=== PATIENT | male | born 1950 | race Caucasian/White ===

== ENCOUNTER 2016-12-05 12:56 | Emergency (ER) | payer MEDICARE, OTHER ==
[2016-12-05] MEDS ORDERED: DEXAMETHASONE 10 MG/ML VIAL ONE (13:24)
[2016-12-05] MEDS ORDERED: cefTRIAXone 1 GM VIAL ONE (13:24)
--- NOTE | 2016-12-05 13:44 | XRAY Preliminary Report ---
Exam: XR Chest 2 View PA/LAT IMPRESSION: Moderate to large left pleural effusion. [facility] SITE ID: [id number]
--- NOTE | 2016-12-05 13:46 | XRAY Report ---
EXAM: CHEST RADIOGRAPHY EXAM DATE: 12/05/2016 01:22 PM. CLINICAL HISTORY: Cough, fever. COMPARISON: Rib radiography 02/19/2016. TECHNIQUE: 2 views. FINDINGS: Lungs/Pleura: Moderate to large left pleural effusion with associated airspace opacity. No right pleu ral effusion or right pulmonary opacity. No pneumothorax. Mediastinum: Heart and mediastinal contours are unremarkable. Other: None. IMPRESSION: Moderate to large left pleural effusion. [facility] Referring Provider Line: [phone] SITE ID: [id number]
[2016-12-05 15:10] LABS: BASOPHILS # (AUTO) 0.1 10^3/uL (0.0-0.1); BASOPHILS % (AUTO) 0.8 %; EOSINOPHILS % (AUTO) 0.4 %; HCT - HEMATOCRIT 39.2 % (42.0-52.0); HGB - HEMOGLOBIN 13.1 g/dL (14.0-18.0); LYMPHOCYTES # (AUTO) 0.7 10^3/uL (1.5-3.5); LYMPHOCYTES % (AUTO) 8.2 %; MEAN CORPUSCULAR HEMOGLOBIN 29.1 pg (27.0-31.0); MEAN CORPUSCULAR HGB CONC 33.4 g/dL (32.0-36.0); MONOCYTES # (AUTO) 0.7 10^3/uL (0.0-1.0); MONOCYTES % (AUTO) 7.5 %; NEUTROPHILS # (AUTO) 7.3 10^3/uL (1.5-6.6); NEUTROPHILS % (AUTO) 83.1 %; RED BLOOD COUNT 4.51 10^6/uL (4.70-6.10); RED CELL DISTRIBUTION WIDTH 13.2 % (12.0-15.0); UNCORRECTED WHITE BLOOD COUNT 8.8 x10^3/uL; WHITE BLOOD COUNT 8.8 x10^3/uL (4.8-10.8)
[2016-12-05 15:20] LABS: ALBUMIN/GLOBULIN RATIO 0.9 (1.0-2.2); BILIRUBIN,TOTAL 0.8 mg/dL (0.2-1.0); CALCIUM 8.8 mg/dL (8.5-10.3); CREATININE 0.8 mg/dL (0.6-1.2); POTASSIUM 4.2 mmol/L (3.5-5.0); TOTAL PROTEIN 7.5 g/dL (6.7-8.2)
[2016-12-05 15:30] LABS: INR 1.2 (0.8-1.2)
--- NOTE | 2016-12-05 17:43 | ED Physician Documentation ---
PD HPI DYSPNEA - Stated complaint Stated Complaint: SOA - Chief complaint Chief Complaint: Resp - History obtained from History obtained from: Patient, Family - History of Present Illness Timing - onset: How many months ago (1) Timing - onset during: Exertion Timing - duration: Months (1) Timing - details: Gradual onset, Still present Improved by: Rest Worsened by: Exertion Associated symptoms: Cough. No: Fever, Hemoptysis, Wheezing, Chest pain / discomfort, Palpitations, Diaphoresis, Bilateral edema, Unilateral edema Similar symptoms before: Has not had sx before Recently seen: Not recently seen - Additional information Additional information: 66-year-old male with one-month history of increasing exertional dyspnea. He initially thought this was due to some smoke exposure or pollen and when he did not have improvement when things cleared up he became concerned. He has had a bit of a cough but does not produce any phlegm and progressive shortness of breath. He has not had this previously and does not have a history of asthma.He has been well over the past year he has lost about 73 pounds intentionally. Review of Systems Constitutional: reports: Fatigue, Sweats. denies: Fever Eyes: denies: Decreased vision Ears: denies: Ear pain Nose: denies: Congestion Throat: denies: Sore throat Cardiac: denies: Chest pain / pressure, Palpitations Respiratory: reports: Dyspnea, Cough GI: denies: Abdominal Pain, Nausea, Vomiting, Constipation, Diarrhea : denies: Dysuria, Frequency Skin: denies: Rash, Lesions Musculoskeletal: denies: Neck pain, Back pain, Extremity pain PD PAST MEDICAL HISTORY - Past Surgical History Past Surgical History: No - Present Medications Home Medications: Ambulatory Orders Medication Instructions Recorded Confirmed Escitalopram Oxalate [Lexapro] 5 DAILY 12/16/13 12/16/13 Oxycodone HCl/Acetaminophen 1 - 2 each PO Q6HR PRN #30 tablet 12/16/13 [Percocet 5-325 mg Tablet] Pregabalin [Lyrica] 25 DAILY 12/16/13 12/16/13 - Allergies Allergies/Adverse Reactions: Allergies Allergy/AdvReac Type Severity Reaction Status Date / Time No Known Drug Allergies Allergy Verified 12/16/13 10:18 - Social History Does the pt smoke?: No Smoking Status: Never smoker Does the pt drink ETOH?: Yes Does the pt have substance abuse?: No - Immunizations Immunizations are current?: Yes - POLST Patient has POLST: No PD ED PE NORMAL - Vitals Vital signs reviewed: Yes (Hypertensive) - General General: Alert and oriented X 3, No acute distress, Well developed/nourished - HEENT HEENT: Atraumatic, PERRL, EOMI, Ears normal - Neck Neck: Supple, no meningeal sign, No bony TTP - Cardiac Cardiac: RRR, No murmur - Respiratory Respiratory: No respiratory distress, Other (There are diminished breath sounds at the left base.) - Abdomen Abdomen: Soft, Non tender - Back Back: No CVA TTP, No spinal TTP - Derm Derm: Normal color, Warm and dry, No rash - Extremities Extremities: No deformity, No edema - Neuro Neuro: Alert and oriented X 3, No motor deficit, No sensory deficit, Normal speech - Psych Psych: Normal mood, Normal affect Results - Vitals Vitals: Vital Signs - 24 hr 12/05/16 12/05/16 12/05/16 13:02 14:17 17:36 Temperature 36.7 C Heart Rate 77 73 75 Respiratory 18 20 18 Rate Blood Pressure 141/83 H 153/65 H 151/61 H O2 Saturation 95 96 100 12/05/16 18:21 Temperature Heart Rate 77 Respiratory 15 Rate Blood Pressure 135/68 H O2 Saturation 96 Oxygen O2 Source Room air - Labs Labs: Laboratory Tests 12/05/16 12/05/16 12/05/16 15:03 15:03 15:03 WBC 8.8 RBC 4.51 L Hgb 13.1 L Hct 39.2 L MCV 87.0 MCH 29.1 MCHC 33.4 RDW 13.2 Plt Count 503 H MPV 7.0 L Neut # 7.3 H Lymph # 0.7 L Howard # 0.7 Eos # 0.0 Baso # 0.1 Absolute Nucleated RBC 0.00 Nucleated RBCs 0.0 PT INR Sodium 137 Potassium 4.2 Chloride 104 Carbon Dioxide 28 Anion Gap 5.0 L BUN 11 Creatinine 0.8 Estimated GFR (MDRD) 96 Glucose 98 Calcium 8.8 Total Bilirubin 0.8 AST 12 ALT 10 Alkaline Phosphatase 77 Troponin I < 0.04 Total Protein 7.5 Albumin 3.6 Globulin 3.9 Albumin/Globulin Ratio 0.9 L Lipase 23 Fluid Source Fluid Color Fluid Clarity Fluid WBC Fluid RBC Fluid Neutrophils % Fluid Lymphocytes % Fluid Monocytes % Fld Mesothelial Cell % 12/05/16 12/05/16 15:03 17:14 WBC RBC Hgb Hct MCV MCH MCHC RDW Plt Count MPV Neut # Lymph # Howard # Eos # Baso # Absolute Nucleated RBC Nucleated RBCs PT 14.0 H INR 1.2 Sodium Potassium Chloride Carbon Dioxide Anion Gap BUN Creatinine Estimated GFR (MDRD) Glucose Calcium Total Bilirubin AST ALT Alkaline Phosphatase Troponin I Total Protein Albumin Globulin Albumin/Globulin Ratio Lipase Fluid Source PLEURAL Fluid Color RED Fluid Clarity CLOUDY Fluid WBC 2588 Fluid RBC 35073 Fluid Neutrophils % 4 Fluid Lymphocytes % 64 Fluid Monocytes % 2 Fld Mesothelial Cell % 30 - Rads (name of study) 2 view chest Radiology: Prelim report reviewed (Impression: Moderate to large left pleural effusion.), EMP read indepedently, See rad report 2 view chest post thoracentesis Radiology: Prelim report reviewed (Impression: 1. New left apical pneumothorax measuring 1.4 cm. Moderate residual left-sided hydropneumothorax after thoracentesis.2. No right pneumothorax or effusion.), EMP read indepedently, See rad report Procedures - Thoracentesis Preparation: Sterile prep and drape, Sitting, Local - lidocaine Technique: Catheter over needle, Intercostal space - enter (8), Lateral, Left, Ultrasound used Fluid: Bloody, Sent for cell count, Sent for gram stain, Sent for culture, Sent for cytology Aftercare: CXR obtained, Patient tolerated well, Dressing applied, Other (small 1.4cm apical pneumothorax) PD MEDICAL DECISION MAKING - ED course Complexity details: reviewed results, re-evaluated patient, considered differential, d/w patient, d/w family ED course: 66-year-old male with relatively benign sounding history of increasing dyspnea over the past month presents to the emergency department without respiratory distress and with diminished breath sounds in the left lung. He is found to have a pleural effusion on the left side and a diagnostic and therapeutic thoracentesis is undertaken in the emergency department. Fluid is sent for cytology, Gram stain and culture, and cell count.The patient will follow up with Dr. Wadsworth for results of the cytology. He does have a small apical pneumothorax related to the procedure and is much improved at the time of discharge. He is aware of the pneumo. Departure - Departure Disposition: 01 Home, Self Care Clinical Impression: Pleural effusion on left, Pneumothorax, iatrogenic Condition: Stable Instructions: ED Effusion Pleural, ED Pneumothorax Spontaneous Follow-Up: Ghulam Wadsworth MD [Primary Care Provider] -
[2016-12-05 18:23] VITALS: BP 135/68
--- NOTE | 2016-12-05 18:34 | XRAY Preliminary Report ---
Exam: XR Chest 2 View PA/LAT IMPRESSION: 1. New left apical pneumothorax measuring 1.4 cm. Moderate residual left-sided hydropneumothorax afte r thoracentesis. 2. No right pneumothorax or effusion. [facility] The above findings were discussed with Chuckie by Dr. Simi George at 18:32 hrs on 12/05/16. SITE ID: [id number]
[2016-12-05 18:36] LABS: CC,BF RBC 35453 /mm^3; LYMPHOCYTES %,BODY FLUID 64; MONOCYTES %,BODY FLUID 2 %; NEUTROPHILS %, BF 4 %
[2016-12-05 18:39] LABS: BF CLARITY CLOUDY; BF COLOR RED; MESOTHELIAL %, BF 30 %
--- NOTE | 2016-12-05 18:43 | XRAY Report ---
EXAM: CHEST RADIOGRAPHY EXAM DATE: 12/05/2016 06:11 PM. CLINICAL HISTORY: Post thoracentesis. COMPARISON: 12/05/2016 at 1322 hours. TECHNIQUE: 2 views. FINDINGS: Lungs/Pleura: Decreased now small to moderate left pleural effusion after thoracentesis. Air-fluid le eric consistent with a left-sided hydropneumothorax measuring 1.4 cm at the left lung apex. Retrocardi ac opacities are noted. Mild interstitial prominence is present in the lungs. No right pneumothorax. Possible small right pleural effusion. Mediastinum: Heart and mediastinal contours are unremarkable. Other: None. IMPRESSION: 1. New left apical pneumothorax measuring 1.4 cm. Moderate residual left-sided hydropneumothorax afte r thoracentesis. 2. Retrocardiac opacities could represent atelectasis or infiltrates. 3. No right pneumothorax or effusion. [facility] The above findings were discussed with Chuckie by Dr. Simi George at 18:32 hrs on 12/05/16. Referring Provider Line: [phone] SITE ID: [id number]
[2016-12-07 17:26] LABS: TEST RESULT REPORT (())
== END 2016-12-05 18:52 | disposition home or self-care (01) ==
LOC: ED 12:56
DX: J90 Pleural effusion, not elsewhere classified (principal); J93.9 Pneumothorax, unspecified
CPT/HCPCS: 32554; 36415; 71020; 80053; 81599; 83690; 84157; 84484; 85025; 85610; 87070; 87205; 89051; 99283; 99284

== ENCOUNTER 2016-12-19 14:22 | Outpatient (CLI) | payer MEDICARE, OTHER ==
[2016-12-19] MEDS ORDERED: IOPAMIDOL-300 100 ML VIAL IVP ONE (16:02)
--- NOTE | 2016-12-20 10:35 | CT Report ---
CT CHEST WITH CONTRAST: 12/19/2016 CLINICAL INDICATION: Bloody pleural effusion. COMPARISON: Plain films 12/05/2016. TECHNIQUE: Axial CT images of the chest were obtained with 100 mL Isovue-300 intravenously. In accordance with CT protocol optimization, one or more of the following dose reduction techniques were utilized for this exam: automated exposure control, adjustment of mA and/or KV based on patient size, or use of iterative reconstructive technique. FINDINGS: The heart and great vessels demonstrate atherosclerotic calcifications. No hilar or mediastinal lymphadenopathy is appreciated. There is a moderate left pleural effusion, with compressive atelectasis of the majority of the left lower lobe. There are multiple hyperdense pleural-based masses present, measuring up to 3.5 cm in diameter, compatible with malignancy. The right lung demonstrates a patchy right lower lobe infiltrate and multiple small peripheral pulmonary nodules, which may represent metastatic disease. These nodules measuring 3-5 mm in size. Limited evaluation of upper abdominal structures demonstrates normal adrenal glands. Osseous structures demonstrate degenerative changes. IMPRESSION: MODERATE LEFT PLEURAL EFFUSION, WITH MULTIPLE PLEURAL-BASED NODULES. PATCHY RIGHT LOWER LOBE INFILTRATE AND MULTIPLE SMALL PERIPHERAL RIGHT LUNG NODULES. CORRELATION WITH CYTOLOGY FROM PLEURAL FLUID IS RECOMMENDED. JOB #: [id number] EXT JOB #: [id number] [facility]
== END 2016-12-19 14:23 | disposition home or self-care (01) ==
LOC: DI 14:22
PROVIDERS: ATTEND Internal Medicine
DX: J90 Pleural effusion, not elsewhere classified (principal); R91.8 Other nonspecific abnormal finding of lung field
CPT/HCPCS: 71260; Q9967

== ENCOUNTER 2017-01-06 11:52 | Outpatient (CLI) | payer MEDICARE, OTHER ==
[2017-01-06 12:45] LABS: CALCIUM 9.1 mg/dL (8.5-10.3); CREATININE 0.9 mg/dL (0.6-1.2); POTASSIUM 4.7 mmol/L (3.5-5.0)
[2017-01-06] MEDS ORDERED: IOPAMIDOL-300 100 ML VIAL ONE (12:54)
[2017-01-06] MEDS ORDERED: IOPAMIDOL-300 50 ML VIAL ONE (12:54)
[2017-01-06] MEDS ORDERED: IOPAMIDOL-300 50 ML VIAL PO ONE (13:41)
[2017-01-06] MEDS ORDERED: IOPAMIDOL-300 100 ML VIAL IVP ONE (13:41)
--- NOTE | 2017-01-06 15:11 | CT Report ---
CT ABDOMEN AND PELVIS WITH CONTRAST: 01/06/2017 CLINICAL INDICATION: Malignant pleural effusion, question primary site. TECHNIQUE: Axial CT images of the abdomen and pelvis were obtained with 100 mL Isovue-300 intravenou sly as well as oral contrast. No previous CT of the abdomen or pelvis is available for comparison. Comparison is made to previous CT of the chest of 12/19/2016. In accordance with CT protocol optimization, one or more of the following dose reduction techniques w ere utilized for this exam: automated exposure control, adjustment of mA and/or KV based on patient size, or use of iterative reconstructive technique. FINDINGS: Limited evaluation of the lung bases demonstrates persistent pleural-based masses and comp ressive atelectasis. Abdomen: The liver, spleen, pancreas, and adrenal glands appear unremarkable. The kidneys demonstra te cortical cysts. No solid renal lesion is seen. No bowel dilatation, free gas, or free fluid is p resent. No abdominal adenopathy is appreciated. Pelvis: Trace free fluid is present in the pelvis. No pelvic adenopathy is seen. The appendix is s een in the right lower quadrant, and is normal in caliber. Osseous structures demonstrate degenerative changes. IMPRESSION: NO EVIDENT PRIMARY MALIGNANCY IN THE ABDOMEN OR PELVIS. JOB #: [id number] EXT JOB #:[id number]
== END 2017-01-06 11:53 | disposition home or self-care (01) ==
LOC: LAB 11:52
PROVIDERS: ATTEND Internal Medicine
DX: J90 Pleural effusion, not elsewhere classified (principal)
CPT/HCPCS: 36415; 74177; 80048; Q9967

== ENCOUNTER 2017-01-29 09:28 | Outpatient (CLI) | payer MEDICARE, OTHER ==
[2017-01-29 11:52] VITALS: BP 92/52
--- NOTE | 2017-01-29 12:03 | XRAY Report ---
INSPIRATORY AND EXPIRATORY VIEWS OF THE CHEST: 01/29/2017 CLINICAL INDICATION: Status post left ultrasound-guided thoracentesis. FINDINGS: Frontal inspiratory and expiratory views of the chest demonstrate a large residual left pl eural effusion. No pneumothorax is present. Patchy airspace disease is seen in the lateral right mi d lung. No right effusion is present. IMPRESSION: NO EVIDENCE OF POSTPROCEDURE PNEUMOTHORAX. JOB #: [id number] EXT JOB #:[id number]
--- NOTE | 2017-01-29 12:25 | Ultrasound Report ---
ULTRASOUND-GUIDED THORACENTESIS: 01/29/2017 CLINICAL INDICATION: Pleural effusion, mesothelioma. FINDINGS: Following obtaining informed consent, a suitable site on the patient's left posterior thor ax was selected with ultrasound. The skin was prepped and draped in the usual sterile fashion. The skin and soft tissues were anesthetized with lidocaine. A Ykh-L-Ysvjgaos catheter was inserted into the left pleural space, and approximately 1975 mL of fluid was removed without difficulty. The patie nt tolerated the proximal well. No immediate complications. IMPRESSION: SUCCESSFUL ULTRASOUND-GUIDED LEFT THORACENTESIS, YIELDING APPROXIMATELY 1975 ML OF FLUID . JOB #: [id number] EXT JOB #:[id number]
[2017-01-29] MEDS ORDERED: BUFFERED LIDOCAINE 10 ML SYRINGE IU ONE (14:34)
== END 2017-01-29 09:29 | disposition home or self-care (01) ==
LOC: DI 09:28
PROVIDERS: ATTEND Internal Medicine
DX: J90 Pleural effusion, not elsewhere classified (principal)
CPT/HCPCS: 32555; 71035

== ENCOUNTER 2017-03-11 07:46 | Outpatient (CLI) | payer MEDICARE, OTHER ==
[2017-03-11 08:17] LABS: BASOPHILS # (AUTO) 0.1 10^3/uL (0.0-0.1); BASOPHILS % (AUTO) 0.8 %; EOSINOPHILS % (AUTO) 0.3 %; HCT - HEMATOCRIT 29.3 % (42.0-52.0); HGB - HEMOGLOBIN 9.1 g/dL (14.0-18.0); LYMPHOCYTES # (AUTO) 0.5 10^3/uL (1.5-3.5); LYMPHOCYTES % (AUTO) 3.1 %; MEAN CORPUSCULAR HEMOGLOBIN 23.9 pg (27.0-31.0); MEAN CORPUSCULAR HGB CONC 31.2 g/dL (32.0-36.0); MEAN CORPUSCULAR VOLUME 76.8 fL (80.0-94.0); MEAN PLATELET VOLUME 6.4 fL (7.4-11.4); MONOCYTES % (AUTO) 6.3 %; NEUTROPHILS # (AUTO) 14.2 10^3/uL (1.5-6.6); NEUTROPHILS % (AUTO) 89.5 %; RED BLOOD COUNT 3.81 10^6/uL (4.70-6.10); RED CELL DISTRIBUTION WIDTH 15.1 % (12.0-15.0); UNCORRECTED WHITE BLOOD COUNT 15.9 x10^3/uL; WHITE BLOOD COUNT 15.9 x10^3/uL (4.8-10.8)
[2017-03-11 08:17] LABS: BILIRUBIN,URINE NEGATIVE (NEGATIVE)
[2017-03-11 08:18] LABS: UA CHARGE (STRIP ONLY) YES; UR CULTURE IF IND NOT INDICATED
== END 2017-03-11 07:47 | disposition home or self-care (01) ==
LOC: LAB 07:46
PROVIDERS: ATTEND Internal Medicine Medical Oncology
DX: C45.7 Mesothelioma of other sites (principal); D63.8 Anemia in other chronic diseases classified elsewhere
CPT/HCPCS: 36415; 81001; 81003; 85025; 87086

== ENCOUNTER 2018-01-22 11:23 | Outpatient (CLI) | payer MEDICARE, OTHER ==
[2018-01-22 12:41] LABS: BASOPHILS % (AUTO) 0.1 %; EOSINOPHILS % (AUTO) 0.2 %; HGB - HEMOGLOBIN 8.7 g/dL (14.0-18.0); LYMPHOCYTES # (AUTO) 0.3 10^3/uL (1.5-3.5); LYMPHOCYTES % (AUTO) 3.6 %; MEAN CORPUSCULAR HEMOGLOBIN 28.2 pg (27.0-31.0); MEAN CORPUSCULAR HGB CONC 32.4 g/dL (32.0-36.0); MEAN PLATELET VOLUME 8.8 fL (7.4-11.4); MONOCYTES # (AUTO) 0.6 10^3/uL (0.0-1.0); MONOCYTES % (AUTO) 6.6 %; NEUTROPHILS # (AUTO) 8.6 10^3/uL (1.5-6.6); NEUTROPHILS % (AUTO) 89.5 %; PLT - PLATELET COUNT 172 10^3/uL (130-450); RED BLOOD COUNT 3.07 10^6/uL (4.70-6.10); WHITE BLOOD COUNT 9.6 x10^3/uL (4.8-10.8)
== END 2018-01-22 11:24 | disposition home or self-care (01) ==
LOC: LAB 11:23
PROVIDERS: ATTEND Nurse Practitioner Family
DX: C34.90 Malignant neoplasm of unspecified part of unspecified bronchus or lung (principal)
CPT/HCPCS: 36415; 85025